=== PATIENT | female | born 1985 | race Caucasian/White ===

== ENCOUNTER 2023-11-18 22:20 | Emergency (ER) | payer BC, SELFPAY ==
[2023-11-18 22:21] VITALS: BMI 22.3
[2023-11-18 22:26] VITALS: BP 150/96
[2023-11-18 22:43] LABS: % Basophils 0.2 % (0-2); % Eosinophils 1.1 % (0-6); % Immature Granulocytes 0.4 % (0-0.5); % Lymphocytes 22.7 % (20.5-51.1); % Neutrophils 68.6 % (42.2-75.2); Absolute Eosinophils 0.1 10^3/uL (0-0.7); Absolute Lymphocytes 1.8 10^3/uL (1.2-3.4); Absolute Monocytes 0.6 10^3/uL (0.1-0.6); Absolute Neutrophils 5.5 10^3/uL (1.4-6.5); Hematocrit 38.1 % (37.0-47.0); Mean Corp Hgb Conc. 34.1 g/dL (33.0-37.0); Mean Corpuscular Hgb 29.1 pg (27.0-31.0); Mean Corpuscular Volume 85.2 fL (81.0-99.0); Mean Platelet Volume 9.9 fL (7.4-10.4); Nucleated Red Blood Cells % 0 %; Platelet Count 316 10^3/uL (130-400); Red Blood Cell Count 4.47 10^6/uL (4.20-5.40); Red Cell Dist. Width 13.2 % (11.5-14.5); White Blood Cell Count 8.1 10^3/uL (4.8-10.8)
[2023-11-18 22:53] LABS: HCG, Serum Qualitative Screen Negative
[2023-11-18 23:04] LABS: ALT (SGPT) 39 U/L (0-35); AST (SGOT) 45 U/L (14-36); Albumin 4.5 g/dl (3.5-5.0); Alkaline Phosphatase 49 U/L (38-126); Blood Urea Nitrogen 31 mg/dl (7-17); Calcium 9.3 mg/dl (8.4-10.2); Carbon Dioxide 25 mmol/L (22-30); Chloride 102 mmol/L (98-107); Glucose 107 mg/dl (70-99); Potassium 3.7 mmol/L (3.5-5.1); Sodium 134 mmol/L (135-145); Total Bilirubin 0.4 mg/dl (0.2-1.3); Total Protein 7.4 g/dl (6.3-8.2); eGFR > 60.00
[2023-11-18 23:29] LABS: Lipase 187 U/L (23-300)
--- NOTE | 2023-11-19 01:15 | ED.GENMED ---
History of Present Illness
General
Chief Complaint: Abnormal Lab Value
Source: patient
Exam Limitations: none
Time Seen by Provider: 11/19/23 00:37
Travel History
Have you had any contact with someone who has COVID-19?: No
Do you have any symptoms of coronavirus? Fever > 100 degrees, chills, cough, shortness of breath, sore throat, loss of taste or smell, muscle aches, or headache?: No
History of Present Illness
History of Present Illness:
This is a 38 year old female that comes in with c/o needing to eat meat. States that this started last summer when she felt like she was unable to focus. States that at the beginning of the summer she had blood work done and her Vit D level was low
so she was told to take Vitamin D 5000IU but she really didn't take this. States that she was drinking Protein shakes and a normal diet. Then winter came and she started with symptom where she would wake up after about 1 hour of sleep and she would
have to eat steak to feel better. Then she would be able to sleep. Then her Vit D level stayed low and she was to take 50,000IU for 3 months and 5000 IU daily. States that she was also taking in a lot of protein and this relieved her symptoms some.
Today she felt like she had to eat meat every hour. Denies any fever, chills, chest pain, SOB, abd pain, nausea, vomiting, diarrhea, headache, dizziness, urinary burning
Past History
Past History
ED Past Medical History: Other (Anemia, Vit D, ); Negative Asthma, HTN, Hypercholesterolemia or NIDDM
ED Past Surgical History: Other (Rhinoplasty)
Social History
Tobacco: Non-smoker
Alcohol: None
Personal:
Living: with family
Review of Systems
Review of Systems
All Other Systems: ROS reviewed and negative except as documented in HPI and ROS
Constitutional: Reports no symptoms; Denies fever or chills
EENT: Reports no symptoms
Respiratory: Reports no symptoms; Denies cough or trouble breathing
Cardiac: Reports no symptoms; Denies chest pain
ABD/GI: Reports no symptoms; Denies abdominal pain, nausea, vomiting or diarrhea
: Reports no symptoms; Denies dysuria, frequency or urgency
Musculoskeletal: Reports no symptoms
Skin: Reports no symptoms
Neurological: Reports no symptoms; Denies dizzy or headache
Psychiatric: Reports no symptoms
Phy Exam
General Physical Exam
General Presentation: well appearing and no apparent distress
General age: appears stated age
General Skin: warm and dry
General Habitus: normal
General Mental: anxious
General Hydration: appears well hydrated
ENT Exam
ENT Exam: TM's normal, pharynx normal and neck supple
Eye Exam
Eye Exam: EOMI
Cardiovascular Exam
Cardiovascular Exam: regular rate/rhythm, no edema, no murmur and normal peripheral pulses
Pulmonary Exam
Pulmonary Exam: lungs clear, no respiratory distress, no rales, chest non tender, no crackles, no rhonchi, no wheezing and no cough
Gastrointestinal Exam
Gastrointestinal Exam: normal bowel sounds, non tender, soft, no organomegaly, no pulsatile mass and non distended
Musculoskeletal Exam
Musculoskeletal Exam: full ROM and no edema
Skin Exam
Skin Exam: normal color, warm/dry, no rash and no petechia
Psychiatric Exam
Psychiatric Exam: normal mood/affect
Course
Orders/Labs/Results
Orders:
Orders
11/18/23 22:31
Test Result ONCE
11/18/23 22:38
CMP [Comprehensive Metabolic Panel] Urgent
Complete Blood Count/With Diff Urgent
HCG, Serum Qualitative Screen Urgent
Lipase Urgent
11/18/23 23:07
Add On- LAB Urgent
Tests Added?: lipase
Abnormal Lab Results
11/18/23
22:38
Sodium 134 L mmol/L
(135-145)
BUN 31 H mg/dl
(7-17)
Glucose 107 H mg/dl
(70-99)
AST 45 H U/L
(14-36)
ALT 39 H U/L
(0-35)
11/18/23 22:38
11/18/23 22:38
Dehydration. Glucose nonfasting. AST/ALT slightly elevated. Lipase normal 187, HCG negative
Vital Signs
Initial and Last Documented VS:
Initial Vital Signs
Temp Pulse Resp BP Pulse Ox
98.1 F 110 20 150/96 98
11/18/23 22:26 11/18/23 22:26 11/18/23 22:26 11/18/23 22:26 11/18/23 22:26
Last Documented Vital Signs
Temp Pulse Resp BP Pulse Ox
98.1 F 110 20 150/96 98
11/18/23 22:26 11/18/23 22:26 11/18/23 22:26 11/18/23 22:26 11/18/23 22:26
MDM/Problems Addressed
Differential Diagnosis Includes:
Anxiety, Obsessive compulsive disease,
MDM/Problems Addressed:
This is a 38 year old female that comes in with c/o needing to eat meat every hour today. States that this has been going on since last Summer that she had a low Vit D level and has been seen by her PCP. Patient has an appointment with the PCP in 2
weeks.
Explained to patient that by her blood work shows is not anemic. Patient need to increase her water intake to 8-8oz glasses daily. Suggested to patient that this may be due to anxiety. Patient does not agree with this. Explained that from an
emergency stand point there is nothing to be done. Will have patient follow up with a Nutritionals and a Insurance Administrative Assistant. Patient to return with any concerns.
Chronic conditions affecting care:
NA
Acute Exacerbation and/or Progression of Chronic Illness:
NA
*Pulse Oximetry
Patient hypoxic: no
*EKG
Interpreted by ED Provider?: NA
Rate: EKG- N/A
*[employer] Member Interpretation
Rate: [employer] Member- N/A
*Critical Care Note
Total Time (30-74mins, 75-104mins- exclusive of procedures): Not Applicable
ED Attending Note
-
Portions of this chart may have been created with voice recognition software.� Occasional wrong word or��sound alike� substitutions may have occurred due to the inherent limitations of voice recognition software.
Discharge Plan
Departure
Patient Disposition: Home (Routine Discharge)
Date of Disposition: 11/19/23
Time of Disposition:
Patient with high blood pressure during this ER visit?: Yes
Condition: Good
Covid-19: Not Applicable
Discharge Problem:
Encounter for nutritional assessment, Dehydration
Instructions: Dehydration, Adult (DC), BLOOD PRESSURE
Referrals:
Aditya Cho MD [Active] - Keep scheduled appt
Bhupendra Ramsey MD [Active] - As needed
Activity Restrictions/Additional Instructions:
As discussed, your blood work here shows that you are dehydrated. Please increase your water intake to 8-8oz glasses daily. Your LIver enzymes are very slightly elevated. This can be due to a viral illness or medication. Your family doctor can
follow these. Please follow up with a Nutritionals such as Laurita Moses at [address] [place] [phone]. You can also follow up with the Insurance Administrative Assistant as needed. It appears that there may be some anxiety that is causing some of your symptoms.
Please discuss this will your Family doctor. IF YOU HAVE ANY OTHER CONCERNS PLEASE RETURN TO THE EMERGENCY ROOM.
Interventions
Interventions:
*Risk Screen - Suicide Last Done: 11/18/23 22:26
*Neglect/Abuse Screening Last Done: 11/18/23 22:26
[2023-11-19 01:34] VITALS: BP 125/96
== END 2023-11-19 01:45 | disposition home or self-care (01) ==
LOC: EMR 22:20
PROVIDERS: EMERGENCY PHYSICIAN Student in an Organized Health Care Education/Training Program; FAMILY PHYSICIAN Family Medicine
DX: E86.0 Dehydration (principal); D64.9 Anemia, unspecified
CPT/HCPCS: 99283; 80053; 83690; 84703; 85025

== ENCOUNTER → 2024-08-26 12:45 | Outpatient (REF) | payer BC, SELFPAY | LOC: RAD 12:45 | PROVIDERS: ATTENDING PHYSICIAN Family Medicine; FAMILY PHYSICIAN Family Medicine | DX: M54.2 Cervicalgia (principal) | CPT/HCPCS: 72050 ==